=== PATIENT | female | born 1990 | race Two or more races ===

== ENCOUNTER 2016-12-03 06:18 | Emergency (ER) | payer BC ==
[2016-12-03 06:35] VITALS: BP 116/61
[2016-12-03] MEDS ORDERED: ACETAMINOPHEN 325 MG TABLET PO ONE (07:48)
[2016-12-03] MEDS ORDERED: IBUPROFEN 800 MG TABLET PO ONE (08:27)
[2016-12-03] MEDS ORDERED: OXYCODONE HCL IR 5 MG TABLET PO ONE (08:27)
[2016-12-03] MEDS ORDERED: CYCLOBENZAPRINE HCL 10 MG TABLET PO ONE (08:27)
[2016-12-03] MEDS ORDERED: ONDANSETRON 4 MG TAB.RAPDIS PO ONE (08:27)
--- NOTE | 2016-12-03 08:33 | ER Document Report ---
HPI - HPI Patient complains to provider of: right neck pain Onset: This morning Onset/Duration: Sudden Pain Level: 5 Context: 25-year-old female had sudden onset of pain and spasm in her right neck while brushing her hair with her neck tilted to the left. No recent illness. sHe has someone to drive her home. Exacerbated by: Denies Relieved by: Denies Similar symptoms previously: No Recently seen / treated by doctor: No - ROS ROS below otherwise negative: Yes Systems Reviewed and Negative: Yes All other systems reviewed and negative - REPRODUCTIVE LMP: 11-16-16 - DERM Skin Color: Normal Past Medical History - General Information source: Patient - Social History Smoking Status: Never Smoker Frequency of alcohol use: None Drug Abuse: None Lives with: Spouse/Significant other Family History: Reviewed & Not Pertinent Patient has suicidal ideation: No Patient has homicidal ideation: No - Medical History Medical History: Negative Renal/ Medical History: Denies: Hx Peritoneal Dialysis Surgical Hx: Negative Vertical Provider Document - CONSTITUTIONAL Agree With Documented VS: Yes Exam Limitations: No Limitations - INFECTION CONTROL TRAVEL OUTSIDE OF THE [place] IN LAST 30 DAYS: No - HEENT HEENT: Atraumatic, Normocephalic - NECK Neck: Supple - Tense tender right sternocleidomastoid muscle. negative: Lymphadenopathy-Left, Lymphadenopathy-Right - RESPIRATORY O2 Sat by Pulse Oximetry: 100 - MUSCULOSKELETAL/EXTREMETIES Musculoskeletal/Extremeties: Tender - See above Notes: Head tilted to the left - NEURO Level of Consciousness: Awake, Alert, Appropriate - DERM Integumentary: Warm, No Rash Course - Vital Signs Vital signs: Temp Pulse Resp BP Pulse Ox 97.6 F 72 18 116/61 100 12/03/16 06:31 12/03/16 06:31 12/03/16 06:31 12/03/16 06:31 12/03/16 06:31 Discharge - Discharge Clinical Impression: right torticollis Condition: Good Instructions: Warm Packs ([facility]), Muscle Relaxers ([facility]), Anti-Inflammatory Medication ([facility]), Myalagia (Muscle Pain) ([facility]), Torticollis ([facility]), Oral Narcotic Medication ([facility]) Additional Instructions: warm compress gentle massage to er if worse Please complete the patient satisfaction survey if you get one, and return it.. If you do not receive a survey, then you can go to the [facility] website, [email or web address] and place your comments about your very good care. Thank you very much. It was a pleasure being your medical provider today. Prescriptions: Ibuprofen [Motrin 800 mg Tablet] 800 mg PO Q8HP PRN #30 tablet PRN Reason: Cyclobenzaprine HCl [Flexeril 10 Mg Tablet] 10 mg PO TIDP PRN #20 tablet PRN Reason: Oxycodone HCl/Acetaminophen [Percocet 5-325 mg Tablet] 1 - 2 tab PO ASDIR PRN # 15 tablet PRN Reason: Forms: Return to Work
== END 2016-12-03 09:09 | disposition home or self-care (01) ==
LOC: ER 06:18
DX: M43.6 Torticollis (principal); M54.2 Cervicalgia
CPT/HCPCS: 99283; S0119